=== PATIENT | male | born 1955 | race Caucasian/White ===

== ENCOUNTER 2021-05-16 10:24 | Inpatient (IN) ==
[2021-05-16] MEDS ORDERED: Acetaminophen IV 1,000 MG/100 ML BAG IVPB ONE (10:26)
[2021-05-16] MEDS ORDERED: *HR* HYDROmorphone 2 MG TABLET PO PRN (10:26)
[2021-05-16] MEDS ORDERED: *HR* HYDROmorphone (PF) 1 MG/ML SYRINGE IVP PRN (10:26)
[2021-05-16] MEDS ORDERED: Promethazine 6.25 MG in Water for inj. (sterile) 20 ML IVPB PRN (10:26)
[2021-05-16] MEDS ORDERED: Pregabalin 75 MG CAPSULE PO ONE (10:26)
[2021-05-16] MEDS ORDERED: Famotidine 20 MG/2 ML VIAL IVP ONE (10:26)
[2021-05-16] MEDS ORDERED: *HR* Labetalol 20 MG/4 ML SYRINGE IVP PRN ×2 (10:26→20:24)
[2021-05-16] MEDS ORDERED: CeFAZolin Syr 2,000MG/20 ML 2,000 MG/20 ML SYRINGE IVPB ONE (10:44)
[2021-05-16] MEDS ORDERED: Ringers Solution, Lactated 1,000 ML IVC SCH (10:45)
[2021-05-16] MEDS ORDERED: *HR* LORazepam 1 MG TABLET PO PRN (11:09)
[2021-05-16] MEDS ORDERED: Ipratropium/Albuterol Neb 3 ML IH ONE ×2 (11:24→18:41)
[2021-05-16] MEDS ORDERED: *HR* Propofol 200 MG/20 ML VIAL IVP ONE (11:48)
[2021-05-16] MEDS ORDERED: Ondansetron 4 MG/2 ML VIAL ONE (11:49)
[2021-05-16] MEDS ORDERED: *HR* Rocuronium Bromide 50 MG/5 ML VIAL ONE (11:49)
[2021-05-16] MEDS ORDERED: Lidocaine -MPF 2% 2 ML VIAL ONE ×2 (11:49→16:00)
[2021-05-16] MEDS ORDERED: ceFAZolin 1,000 MG, Sodium Chloride IRRigation 1,000 ML IR ONE (12:25)
[2021-05-16] MEDS ORDERED: Heparin 1,000 UNITS/500 mL 500 ML ONE (13:44)
[2021-05-16] MEDS ORDERED: Heparin 1,000 UNITS/500 mL 0 ML ONE (13:46)
[2021-05-16] MEDS ORDERED: Protamine Sulfate 50 MG/5 ML VIAL IVP ONE (13:47)
[2021-05-16] MEDS ORDERED: *HR* Heparin 5,000 UNIT/ML VIAL ONE (13:56)
[2021-05-16] MEDS ORDERED: *HR* Midazolam HCl 2 MG/2 ML VIAL ONE (13:57)
[2021-05-16] MEDS ORDERED: *HR* FentaNYL (PF) 100 MCG/2 ML VIAL ONE (13:57)
[2021-05-16] MEDS ORDERED: *HR* Remifentanil 2 MG VIAL IVP ONE (13:58)
[2021-05-16] MEDS ORDERED: *HR* Phenylephrine 10 MG/ML VIAL ONE (16:49)
[2021-05-16] MEDS ORDERED: *HR* HYDROMORPHONE 2 MG/ML VIAL ONE (17:09)
[2021-05-16] MEDS ORDERED: Ipratropium/Albuterol Neb 3 ML ONE (18:43)
[2021-05-16] MEDS ORDERED: Naloxone 0.4 MG/ML INJ IVP PRN (20:24)
[2021-05-16] MEDS ORDERED: Acetaminophen 325 MG TABLET PO PRN (20:24)
[2021-05-16] MEDS ORDERED: Ondansetron 4 MG/2 ML VIAL IVP PRN (20:24)
[2021-05-16] MEDS ORDERED: *HR* OxyCODONE Immed Rel 5 MG TABLET PO PRN (20:24)
[2021-05-16] MEDS ORDERED: *HR* HYDROcodone/Acet 5/325 mg TABLET PO PRN (20:24)
[2021-05-16] MEDS: Azelastine 0.1% Nasal Spray 30 ML BOTTLE NS SCH (20:46)
[2021-05-16] MEDS: Budesonide/Formoterol 160/4.5 1 PUFF INH IH SCH (21:28)
[2021-05-16] MEDS: CeFAZolin 2 GM/120 ML BAG IVPB SCH (23:37)
[2021-05-17 04:05] LABS: Basophils % 0.2 %; Immature Granulocytes % 0.2 % (0-4); Lymphocytes # 1.1 K/mcL (0.6-4.6); Lymphocytes % 11.4 %; Mean Corpuscular HGB Conc 33.3 g/dL (31.6-35.5); Mean Corpuscular Hemoglobin 30.7 pg (28.0-33.3); Mean Corpuscular Volume 92.2 fL (83.0-100.0); Monocytes % 10.7 %; Neutrophils # 7.1 K/mcL (1.6-8.9); Platelet Count 238 K/mcL (140-400); Red Blood Count 4.23 M/mcL (4.19-5.50); Red Cell Distribution Width 13.2 % (11.5-14.5); Segmented Neutrophils % 77.5 %; White Blood Count 9.2 K/mcL (4.3-11.1)
[2021-05-17 04:22] LABS: BUN/Creatinine Ratio 16 (6-26); Blood Urea Nitrogen 17 mg/dL (8-23); Calcium 8.2 mg/dL (8.6-10.3); Carbon Dioxide 24 mEq/L (23-29); Chloride 104 mEq/L (98-107); Glucose 188 mg/dL (70-105); Osmolality,Calculated 287 (280-300); Potassium 4.6 mEq/L (3.5-5.1); Sodium 135 mEq/L (136-145); eGFR For African Americans > 60 (> 60); eGFR For Non-African Americans > 60 (> 60)
[2021-05-17 07:24] VITALS: BP 124/74; PULSE 93; TEMP 97.3
[2021-05-17] MEDS: Budesonide/Formoterol 160/4.5 1 PUFF INH IH SCH (07:32)
[2021-05-17] MEDS: CeFAZolin 2 GM/120 ML BAG IVPB SCH (08:14)
[2021-05-17] MEDS: Azelastine 0.1% Nasal Spray 30 ML BOTTLE NS SCH (08:15)
[2021-05-17 11:37] VITALS: O2SAT 94
== END 2021-05-17 09:15 | disposition home or self-care (01) | DRG 253 ==
LOC: SAMDAY 10:24 → 2NNU 13:37
PROVIDERS: ADMIT Surgery Vascular Surgery; ATTEND Surgery Vascular Surgery

== ENCOUNTER 2021-12-26 09:33 | Inpatient (IN) ==
[~2021-12-26 09:33] MED LIST: ceFAZolin 1,000 MG, Sodium Chloride IRRigation 1,000 ML IR ONE
[2021-12-26] MEDS ORDERED: CeFAZolin Syr 2,000MG/20 ML 2,000 MG/20 ML SYRINGE IVPB ONE (09:55)
[2021-12-26] MEDS ORDERED: Heparin 1,000 UNITS/500 mL 1,500 ML ONE (09:57)
[2021-12-26] MEDS ORDERED: *HR* HYDROmorphone (PF) 1 MG/ML SYRINGE IVP PRN (09:59)
[2021-12-26] MEDS ORDERED: *HR* HYDROmorphone 2 MG TABLET PO PRN (09:59)
[2021-12-26] MEDS ORDERED: Famotidine 20 MG/2 ML VIAL IVP ONE (09:59)
[2021-12-26] MEDS ORDERED: *HR* Labetalol 20 MG/4 ML SYRINGE IVP PRN ×2 (09:59→17:13)
[2021-12-26] MEDS ORDERED: Acetaminophen IV 1,000 MG/100 ML BAG IVPB ONE (09:59)
[2021-12-26] MEDS ORDERED: *HR* OxyCODONE Immed Rel 5 MG TABLET PO PRN ×2 (09:59→17:13)
[2021-12-26] MEDS ORDERED: Ringers Solution, Lactated 1,000 ML IVC SCH (10:00)
[2021-12-26] MEDS ORDERED: *HR* FentaNYL (PF) 100 MCG/2 ML VIAL ONE (10:16)
[2021-12-26] MEDS ORDERED: *HR* Midazolam HCl 2 MG/2 ML VIAL ONE (10:16)
[2021-12-26] MEDS ORDERED: *HR* Succinylcholine 200 MG/10 ML VIAL IVP ONE (10:16)
[2021-12-26] MEDS ORDERED: Lidocaine HCL 4 ML Topical Solution (Laryng-O-Jet Kit Sterile Pak) TP ONE (10:16)
[2021-12-26] MEDS ORDERED: *HR* Rocuronium Bromide 50 MG/5 ML VIAL ONE (10:16)
[2021-12-26] MEDS ORDERED: *HR* Propofol 200 MG/20 ML VIAL IVP ONE (10:16)
[2021-12-26] MEDS ORDERED: Ondansetron 4 MG/2 ML VIAL ONE (10:16)
[2021-12-26] MEDS ORDERED: Lidocaine -MPF 2% 5 ML VIAL ONE ×2 (10:16→13:53)
[2021-12-26] MEDS ORDERED: *HR* Phenylephrine 10 MG/ML VIAL ONE ×2 (10:17→13:38)
[2021-12-26] MEDS ORDERED: *HR* Heparin 5,000 UNIT/ML VIAL ONE (10:17)
[2021-12-26] MEDS ORDERED: Heparin 1,000 UNITS/500 mL 500 ML ONE (10:20)
[2021-12-26] MEDS ORDERED: Ketamine *HR* 500 MG/10 ML MDV ONE (10:34)
[2021-12-26] MEDS ORDERED: NiCARdipine 2.5 MG/10 ML Syringe IVPB ONE (10:35)
[2021-12-26] MEDS ORDERED: *HR* Vasopressin 20 UNIT/ML VIAL ONE (10:35)
[2021-12-26] MEDS ORDERED: EPHEDrine 50 MG/ML VIAL ONE (11:05)
[2021-12-26] MEDS ORDERED: Albumin Human 5% 25.0 GM/500 ML IV.SOLN ONE (11:06)
[2021-12-26] MEDS ORDERED: Albuterol 2.5 MG/3 ML NEBULIZER IH ONE (14:50)
[2021-12-26] MEDS ORDERED: Acetaminophen 325 MG TABLET PO PRN (17:13)
[2021-12-26] MEDS ORDERED: Naloxone 0.4 MG/ML INJ IVP PRN (17:13)
[2021-12-26] MEDS ORDERED: *HR* HYDROcodone/Acet 5/325 mg TABLET PO PRN (17:13)
[2021-12-26] MEDS: CeFAZolin 2 GM/120 ML BAG IVPB SCH (19:38)
[2021-12-26] MEDS: cilostazoL 100 MG TABLET PO SCH (20:00)
[2021-12-26] MEDS: Budesonide/Formoterol 160/4.5 1 PUFF INH IH SCH (21:34)
[2021-12-27 03:21] LABS: Basophils % 0.2 %; Hematocrit 40.1 % (37.5-50.1); Hemoglobin 13.6 g/dL (12.9-16.9); Immature Granulocytes % 0.4 % (0-4); Lymphocytes # 1.3 K/mcL (0.6-4.6); Lymphocytes % 13.2 %; Mean Corpuscular HGB Conc 33.9 g/dL (31.6-35.5); Mean Corpuscular Hemoglobin 31.3 pg (28.0-33.3); Mean Corpuscular Volume 92.2 fL (83.0-100.0); Mean Platelet Volume 9.2 fL (9.4-12.4); Monocytes # 0.9 K/mcL (0.0-1.3); Monocytes % 9.2 %; Neutrophils # 7.5 K/mcL (1.6-8.9); Platelet Count 253 K/mcL (140-400); Red Blood Count 4.35 M/mcL (4.19-5.50); Red Cell Distribution Width 13.1 % (11.5-14.5); White Blood Count 9.7 K/mcL (4.3-11.1)
[2021-12-27] MEDS: CeFAZolin 2 GM/120 ML BAG IVPB SCH ×2 (03:24→11:08)
[2021-12-27 03:44] LABS: BUN/Creatinine Ratio 13 (6-26); Blood Urea Nitrogen 15 mg/dL (8-23); Calcium 8.6 mg/dL (8.6-10.3); Carbon Dioxide 23 mEq/L (23-29); Chloride 105 mEq/L (98-107); Glucose 160 mg/dL (70-105); Osmolality,Calculated 288 (280-300); Potassium 3.6 mEq/L (3.5-5.1); Sodium 137 mEq/L (136-145); eGFR For African Americans > 60 (> 60); eGFR For Non-African Americans > 60 (> 60)
[2021-12-27] MEDS: Budesonide/Formoterol 160/4.5 1 PUFF INH IH SCH (07:22)
[2021-12-27] MEDS ORDERED: Venlafaxine XR (24 HR) 150 MG CAP.ER.24H PO SCH (09:00)
[2021-12-27] MEDS: cilostazoL 100 MG TABLET PO SCH (09:04)
[2021-12-27 11:06] VITALS: BP 131/59; PULSE 97; O2SAT 92
[2021-12-27 12:30] VITALS: TEMP 97.2
== END 2021-12-27 13:44 | disposition home or self-care (01) ==
LOC: SAMDAY 09:33 → ICNU 16:47
PROVIDERS: ADMIT Surgery Vascular Surgery; ATTEND Surgery Vascular Surgery